=== PATIENT | female | born 1965 | race Caucasian/White ===

== ENCOUNTER 2016-10-31 14:51 | Outpatient (CLI) | payer OTHER ==
[~2016-10-31 14:51] MED LIST: ADIPEX-P37.5 MG PO; BUSPIRONE HCL5 MG PO; DOCUSATE SODIU100 MG PO; HCTZ/TRIAMTEREN1 TA1 PO; LAMOTRIGINE25 MG PO; LOPRESSOR50 MG PO; NEURONTIN300 MG PO; NORCO1 TA1 PO; ROBAXIN500 M1 PO; TRAZODONE HCL50 MG PO
== END 2016-10-31 23:00 ==
LOC: LAB SRH 14:51
DX: R07.9 Chest pain, unspecified (principal)
CPT/HCPCS: 90047; 90074; 90616; 93140; 95059

== ENCOUNTER 2017-02-16 19:09 | Emergency (ER) | payer OTHER ==
--- NOTE | 2017-02-16 20:43 | DIAGNOSTIC IMAGING REPORT ---
PROCEDURE: XR CHEST 1 VIEW INDICATION: CHEST PAIN TECHNIQUE: Portable AP view 07:28 p.m.. COMPARISON: Chest x-ray 09/28/2016. FINDINGS: Lungs are clear. Heart and mediastinum are normal. Thorax is normal. Marked gaseous distention of the stomach. IMPRESSION: 1. Marked gaseous distention of the stomach 2. Otherwise negative chest
--- NOTE | 2017-02-16 23:51 | ED ORDER SUMMARY ---
..... Patient: BETTE ELIZALDE OrderSheet [facility] VisitID: [id number] [address] [place] [address] 51y, F Registration Date/Time: 02/16/2017 ORDER SHEET Weight: 83.4 kg (stated) Allergies: Adhesive GENERAL ORDERS: Brokerage Branch Manager (Continuous) (19:35 02/16/2017 HBivens A.R.N.P.) (19:38 CBradburn R.N.) Chest 1V Urgent (19:35 02/16/2017 HBivens A.R.N.P.) (Ack 19:37 CHagerty ER Property Staff Accountant) (19:48 MCampbell) CBC w Diff Urgent (19:35 02/16/2017 HBivens A.R.N.P.) (Ack 19:37 CHagerty ER Property Staff Accountant) (19:57 CBradburn R.N.) CMP Urgent (19:35 02/16/2017 HBivens A.R.N.P.) (Ack 19:37 CHagerty ER Property Staff Accountant) (19:57 CBradburn R.N.) CPK Urgent (19:35 02/16/2017 HBivens A.R.N.P.) (Ack 19:37 CHagerty ER Property Staff Accountant) (19:57 CBradburn R.N.) Troponin-I Urgent (19:35 02/16/2017 HBivens A.R.N.P.) (Ack 19:37 CHagerty ER Property Staff Accountant) (19:57 CBradburn R.N.) Oxygen (2 L/min) (NC) (19:35 02/16/2017 HBivens A.R.N.P.) (19:50 CBradburn R.N.) EKG - ER Stat (19:35 02/16/2017 HBivens A.R.N.P.) (19:36 CHagerty ER Property Staff Accountant) Troponin-I Urgent (20:52 02/16/2017 HBivens A.R.N.P.) (Ack 20:57 CHagerty ER Property Staff Accountant) (22:16 CBradburn R.N.) CPK Urgent (20:52 02/16/2017 HBivens A.R.N.P.) (Ack 20:57 CHagerty ER Property Staff Accountant) (22:16 CBradburn R.N.) EKG - ER Stat (22:48 02/16/2017 HBivens A.R.N.P.) (Ack 22:50 CHagerty ER Property Staff Accountant) (23:08 CBradburn R.N.) MEDICATION ORDERS: NitroGLYCERIN SL 0.4 mg (x3 PRN Chest Pain) (19:35 02/16/2017 HBivens A.R.N.P.) (Ack 19:39 CBradburn R.N.) (19:50 CBradburn R.N.) Aspirin PO 325 mg (Do not crush or chew, NOW) (19:35 02/16/2017 HBivens A.R.N.P.) (Ack 19:49 CBradburn R.N.) (19:49 CBradburn R.N.) IV FLUIDS: IV Saline Lock (19:35 02/16/2017 HBivens A.R.N.P.) (19:39 CBradburn R.N.) Ativan IV 2 mg (HIGH ALERT MEDICATION, NOW) (20:07 02/16/2017 HBivens A.R.N.P.) (Ack 20:09 CBradburn R.N.) (20:21 CBradburn R.N.) IV NS : initial bolus 1000 mL (1000 mL/hr), then none - (NOW) (20:51 02/16/2017 HBivens A.R.N.P.) (Ack 20:57 CBradburn R.N.) (21:28 CBradburn R.N.) Morphine IV 2 mg (NOW) (23:00 02/16/2017 Mariam ZELAYA) (Ack 23:43 CBradburn R.N.) (23:43 CBradburn R.N.) NitroGLYCERIN Drip IV : 5 mcg/min (TITRATE); Urgent (23:00 02/16/2017 Mariam ZELAYA) (Ack 23:43 CBradburn R.N.) (23:43 CBradburn R.N.) Heparin IV : initial bolus 1600, then 1000 per hour for X1 (NOW); Routine (23:01 02/16/2017 Mariam ZELAYA) (Ack 23:43 Micah Engle) (23:43 Micah Engle) ORDER SHEET NOTES: [Electronically signed by Ondina Edwards R.N. (:02/17/2017)] [Electronically signed by Ministerio Saravia MD (06:02/17/2017)] [Electronically locked/signed by Ondina Edwards R.N. (02/17/2017)]
--- NOTE | 2017-02-16 23:51 | ED ORDER SUMMARY ---
..... Patient: BETTE ELIZALDE OrderSheet [facility] VisitID: [id number] [address] [place] [address] 51y, F Registration Date/Time: 02/16/2017 ORDER SHEET Weight: 83.4 kg (stated) Allergies: Adhesive GENERAL ORDERS: Industrial Green Systems Designer (Continuous) (19:35 02/16/2017 HBivens A.R.N.P.) (19:38 CBradburn R.N.) Chest 1V Urgent (19:35 02/16/2017 HBivens A.R.N.P.) (Ack 19:37 CHagerty ER Hand Former Helper) (19:48 MCampbell) CBC w Diff Urgent (19:35 02/16/2017 HBivens A.R.N.P.) (Ack 19:37 CHagerty ER Hand Former Helper) (19:57 CBradburn R.N.) CMP Urgent (19:35 02/16/2017 HBivens A.R.N.P.) (Ack 19:37 CHagerty ER Hand Former Helper) (19:57 CBradburn R.N.) CPK Urgent (19:35 02/16/2017 HBivens A.R.N.P.) (Ack 19:37 CHagerty ER Hand Former Helper) (19:57 CBradburn R.N.) Troponin-I Urgent (19:35 02/16/2017 HBivens A.R.N.P.) (Ack 19:37 CHagerty ER Hand Former Helper) (19:57 CBradburn R.N.) Oxygen (2 L/min) (NC) (19:35 02/16/2017 HBivens A.R.N.P.) (19:50 CBradburn R.N.) EKG - ER Stat (19:35 02/16/2017 HBivens A.R.N.P.) (19:36 CHagerty ER Hand Former Helper) Troponin-I Urgent (20:52 02/16/2017 HBivens A.R.N.P.) (Ack 20:57 CHagerty ER Hand Former Helper) (22:16 CBradburn R.N.) CPK Urgent (20:52 02/16/2017 HBivens A.R.N.P.) (Ack 20:57 CHagerty ER Hand Former Helper) (22:16 CBradburn R.N.) EKG - ER Stat (22:48 02/16/2017 HBivens A.R.N.P.) (Ack 22:50 CHagerty ER Hand Former Helper) (23:08 CBradburn R.N.) MEDICATION ORDERS: NitroGLYCERIN SL 0.4 mg (x3 PRN Chest Pain) (19:35 02/16/2017 HBivens A.R.N.P.) (Ack 19:39 CBradburn R.N.) (19:50 CBradburn R.N.) Aspirin PO 325 mg (Do not crush or chew, NOW) (19:35 02/16/2017 HBivens A.R.N.P.) (Ack 19:49 CBradburn R.N.) (19:49 CBradburn R.N.) IV FLUIDS: IV Saline Lock (19:35 02/16/2017 HBivens A.R.N.P.) (19:39 CBradburn R.N.) Ativan IV 2 mg (HIGH ALERT MEDICATION, NOW) (20:07 02/16/2017 HBivens A.R.N.P.) (Ack 20:09 CBradburn R.N.) (20:21 CBradburn R.N.) IV NS : initial bolus 1000 mL (1000 mL/hr), then none - (NOW) (20:51 02/16/2017 HBivens A.R.N.P.) (Ack 20:57 CBradburn R.N.) (21:28 CBradburn R.N.) Morphine IV 2 mg (NOW) (23:00 02/16/2017 Mariam ZELAYA) (Ack 23:43 CBradburn R.N.) (23:43 CBradburn R.N.) NitroGLYCERIN Drip IV : 5 mcg/min (TITRATE); Urgent (23:00 02/16/2017 Mariam ZELAYA) (Ack 23:43 CBradburn R.N.) (23:43 CBradburn R.N.) Heparin IV : initial bolus 1600, then 1000 per hour for X1 (NOW); Routine (23:01 02/16/2017 Mariam ZELAYA) (Ack 23:43 Micah Engle) (23:43 Micah Engle) ORDER SHEET NOTES: [Electronically signed by Ondina Edwards R.N. (:02/17/2017)] [Electronically signed by Ministerio Saravia MD (06:02/17/2017)] [Electronically locked/signed by Ondina Edwards R.N. (02/17/2017)]
--- NOTE | 2017-02-16 23:51 | ED CLINICAL REPORT ---
Clinical Report - Physicians/Mid Levels [facility] [address] [place] [address] 02/16/2017 19:09 Patient: BETTE ELIZALDE Time Seen: 1924; initial patient contact, initial documentation, patient care assumed. Arrived- By ambulance. Historian- patient. CPT: ER phys charges level 5 plus (#[id number]). EKG interpretation (#[id number]). HISTORY OF PRESENT ILLNESS Chief Complaint: CHEST PAIN and DISCOMFORT. It is described as pressure and "pain" and it is described as located in the left chest area and radiating to the left arm. At its maximum, severity described as severe. When seen in the E.D., severity described as severe. Modifying factors- relieved by nitroglycerin (four, from patients own supply). (took x4 ntg today, no relief). Not worsened by anything. Not relieved by anything. This started today and is still present. Onset during sleep. No nausea, vomiting or diaphoresis. (also says she has daily anxiety attacks). She has had difficulty breathing on exertion and at rest. Similar symptoms previously: Chronically. ( states she has cp every day). Recent medical care: Not recently seen/assessed. REVIEW OF SYSTEMS No fever, chills, cough, pedal edema or calf pain. No fainting episodes, sore throat or throat, abdominal pain or black stools. No difficulty with urination, skin rash, enlarged lymph nodes, diabetic symptoms or easy bruising. All systems otherwise negative, except as recorded above. PAST HISTORY See nurses notes. PROBLEMS: Diarrhea. Abdominal Pain. Arthritis. Diverticulitis. IBS. Gastritis. Fibromyalgia. Hypertension. Depression. -. NSTEMI. 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 Hysterectomy. Shoulder Surgery. --19:24 Ondina Edwards R.N. Anxiety problems. SOCIAL HISTORY Light tobacco smoker. Occasional alcohol use. No drug use. No recent travel. Is a local resident. FAMILY HISTORY History of heart disease in first-degree relative (mother) and grandparent. ADDITIONAL NOTES The nursing notes have been reviewed with agreement regarding the chief complaint, HPI, ROS, PMH and patient medications and allergies. PHYSICAL EXAM Vital Signs: 02/16/2017 19:15 BP: 163/91. HR: 95. RR: 24. O2 saturation: 100%. Temp: 97.8 F. Pain level now: 07/11. Have been reviewed as abnormal and appear to be correct. Hypertensive. Heart rate normal. Respiratory rate normal. Temperature normal. Oxygen saturation normal. Appearance: Alert. Oriented X3. No acute distress. Anxious. (tearful and crying). Eyes: Pupils equal, round and reactive to light. Eyes normal inspection. Neck: Normal inspection. Neck supple. CVS: Normal heart rate and rhythm. Heart sounds normal. Pulses normal. Respiratory: No respiratory distress. Breath sounds normal. Chest nontender. Abdomen: Soft and nontender. Back: Normal external inspection. Skin: Skin warm and dry. Normal skin color. No rash. Normal skin turgor. Extremities: Extremities exhibit normal ROM. No lower extremity edema. Neuro: Oriented X 3. No motor deficit. No sensory deficit. LABS, X-RAYS, AND EKG EKG: EKG time: (1921). No acute process. No acute ischemia. Normal EKG. Rate: 95. Right atrial enlargement. Normal EKG. EKG unchanged when compared with prior EKG. The study has been interpreted contemporaneously by me (and Dr León). The EKG appears to be a good tracing. Interpretation time: 1924. Chest X-ray: Normal Chest X-Ray. (IMPRESSION: 1. Marked gaseous distention of the stomach 2. Otherwise negative chest Electronically Final signed by:Cristofer George MD 02/16/2017 8:42:47 PM). The X-rays were interpreted by the radiologist and contemporaneously by me. Interpretation time: 20:55. Laboratory Tests: CBC w Diff: (DAVID: 02/16/2017 19:56) ( MsgRcvd 02/16/2017 20:19) Final results Test Result Flag Units (Reference) WHITE BLOOD COUNT 11.3 K/uL (4.5-11.5) RED BLOOD COUNT 5.07 M/uL (4.00-5.20) HEMOGLOBIN 15.6 gm/dL (12.0-16.0) HEMATOCRIT 46.1 H % (36.0-46.0) MEAN CELL VOLUME 91 fL (80-100) MEAN CORPUSCULAR HGB 31 pg (26-34) MEAN CORPUSCULAR HGB CONC 34 g/dL (31-37) RED CELL DISTRIBUTION WIDTH 13.2 % (11.6-14.8) PLATELET COUNT 279 K/uL (150-400) NEUTROPHIL % 90.3 H % (50-75) LYMPH % 4.8 L % (25-40) MONO % 3.9 % (3-14) EOSINOPHIL % 0.9 % (0-4) BASOPHIL % 0.1 % (0-2) CPK: (DAVID: 02/16/2017 22:10) ( [facility] 02/16/2017 22:47) Final results Test Result Flag Units (Reference) CPK 70 U/L (24-260) TROPONIN I 2.06 H ng/mL (0.00-1.5) CRITICAL RESULTS CALLEDCalled to MADINA BLAND RN 02/16/17 [id number] 2 patient identifiers used? YWas the result read back? YTROPONIN REFERENCE RANGE:<0.1 NEGATIVE0.1-1.5 INDETERMINANT>1.5 POSITIVE CMP: (DAVID: 02/16/2017 19:56) ( [facility] 02/16/2017 20:41) Final results Test Result Flag Units (Reference) GLUCOSE 150 H mg/dL (70-110) BUN 18 mg/dL (7-18) CREATININE 0.6 mg/dL (0.6-1.3) Estimated GFR >60 mL/min Estimated GFR- >60 mL/min Note: Persistent reduction over 3 months in eGFR<60 mL/min/1.73 m2 defines CKD. Patients with eGFR values>=60 mL/min/1.73 m2 may also have CKD if evidence ofpersistent proteinuria. Additional information may be foundat www.kidney.org. SODIUM 138 mmol/L (136-145) POTASSIUM 3.4 L mmol/L (3.5-5.1) CHLORIDE 102 mmol/L (98-107) CARBON DIOXIDE 19 L mmol/L (21-32) CALCIUM 9.0 mg/dL (8.5-10.1) TOTAL PROTEIN 7.6 g/dL (6.4-8.2) ALBUMIN 3.9 g/dL (3.3-5.0) BILIRUBIN, TOTAL 1.3 H mg/dL (0.0-1.0) ALKALINE PHOSPHATASE 59 U/L (46-116) AST (SGOT) 14 L U/L (15-37) ALT (SGPT) 30 U/L (12-78) CPK 29 U/L (24-260) TROPONIN I <0.05 ng/mL (0.00-1.5) TROPONIN REFERENCE RANGE:<0.1 NEGATIVE0.1-1.5 INDETERMINANT>1.5 POSITIVE . PROGRESS AND PROCEDURES Course of Care: 19:45 02/16/17. pt has murray for frequent narcs, consistently getting hydrocodone 7.5mg #60 monthly, #6 er visits, see report for full details 20:06 02/16/17. nurse reporting pt's pain down from 10 to 5 after x3 ntg, pt still anxious 2200. pt updated with current results, and lab at bedside drawing second set of enzymes 23:02 02/16/17. Assumed care from off going mid-level . Pt with 3 hour troponin that has turned positive. Pain still 5/10 Morphine 2mg IV Nitroglycerin drip Heparin 1600 mg Iv bolus then 1000 units per hour. Call to [facility] : no beds. Pt with NSTEMI and troponin of 2.1. 02/16/2017 20:15 BP: 119/81. HR: 99. RR: 20. O2 saturation: 98%. Pain level now: 5/10. Vital Signs: have been reviewed as normal and appear to be correct. Discussed case with on-call health care provider, ([place]ac[facility]: [facility] Reviewed test results. Agreed upon treatment plan and decision to admit. Health care provider will see patient in hospital. Patient/family counseled. Differential Diagnosis: I considered muscle strain, costochondritis, myositis, pleurisy, myocardial infarction, intermediate coronary syndrome, unstable angina, angina, aortic dissection, mitral valve prolapse, pericarditis, palpitations, lung cancer, gastroesophageal reflux disease, esophagitis and esophageal spasm as a possible cause of chest pain in this patient. (anxiety, substance abuse). Above considerations are based on history, physical exam, reassessment, laboratory data, X-Ray data and EKG. Differential diagnosis was discussed with patient. Disposition: Transferred. [facility]. Not discharged. CLINICAL IMPRESSION Precordial chest pain characterized as "discomfort" and "pressure" .12 lead EKG performed. NSTEMI. (Electronically signed by Ministerio Saravia MD 02/17/2017 6:01)
--- NOTE | 2017-02-16 23:51 | ED NURSING NOTES ---
Clinical Report - Nurses [address] [address] [place] [address] 02/16/2017 19:09 Patient: BETTE ELIZALDE TRIAGE Triage time 19:10. Acuity: LEVEL 2. Chief Complaint: CHEST PAIN and LEFT ARM PAIN and SHORTNESS OF BREATH. --19:28 Ondina Edwards R.N. 19:15 02/16/17. BP: 163/91 taken on the left arm, while lying. HR: 95 (regular and normal rate). RR: 24 (regular, unlabored and rapid). O2 saturation: 100% on room air. Temp: 97.8 F. Pain level now: 07/11. --19:28 Ondina Edwards R.N. Weight: 83.4 kg stated. Height/Length: 68 inches Per Patient. BMI: 28. --19:25 Ondina Edwards R.N. Medications LamoTRIgine Oral (Tablet Dispersible 25 mg) 1/2 tablet, q day. Methocarbamol Oral 750 mg, at bedtime. Metoprolol Tartrate Oral 50 mg, q day. TraZODone HCl Oral 100 mg 2 tabs, at bedtime. Vicodin Oral 7.5 mg, as needed. --19:20 Ondina Edwards R.N. AmLODIPine Besylate Oral (Tablet 10 mg) 1 tablet, daily. --19:20 Ondina Edwards R.N. Aspirin Oral (Tablet Chewable 81 mg) 1 tablet. --19:20 nOdina Edwards R.N. BuPROPion HCl Oral 300 mg, daily. --19:21 Ondina Edwards R.N. Nitroglycerin Sublingual (Tablet Sublingual 0.4 mg) 1 tablet, PRN. --19:22 Ondina Edwards R.N. Rosuvastatin Calcium Oral (Tablet 20 mg) 1 tablet, at bedtime. --19:22 Ondina Edwards R.N. Ticagrelor Oral (Tablet 90 mg) 1 tablet, BID. --19:23 Ondina Edwards R.N. Allergies Adhesive. --:23 Ondina Edwards R.N. History Arrived by EMS. Historian: patient. Unaccompanied. Primary physician (Joesph). ( has CP everyday, however woke pt up this morning at 0200 pt took 4 SL nitro today last one at 1300 without relief, pt hyperventalating). She has had moderate difficulty breathing (since 6 AM). The patient has also had dyspnea on exertion. PAST MEDICAL HX: The patient is post-menopausal. SOCIAL HX: Smoker- current status unknown. Occasional alcohol use. No drug use. ABUSE ASSESSMENT: No report of abuse. SELF HARM ASSESSMENT: A self harm assessment was performed. The patient answered "no" to the question "Have you recently felt down, depressed, or hopeless?", "Have you noticed less interest or pleasure in doing things?", "Do you have thoughts of harming or killing yourself?", "Are you here because you tried to hurt yourself?", "Have you ever tried to hurt yourself before today?", "Have you recently had thoughts about harming or killing others?" and "Do you have any dangerous items in your possession?". FALL RISK ASSESSMENT: Fall risk assessment completed. No fall risk identified. NUTRITIONAL RISK ASSESSMENT: The nutritional risk assessment revealed no deficiencies. FUNCTIONAL ASSESSMENT: Functional assessment: no impairments noted. LEARNING NEEDS ASSESSMENT: The learning needs assessment revealed no barriers. SKIN INTEGRITY ASSESSMENT: Skin integrity risk assessment completed. No skin integrity risk identified. -- Ondina Edwards R.N. PROBLEMS: Diarrhea. Abdominal Pain. Arthritis. Diverticulitis. IBS. Gastritis. Fibromyalgia. Hypertension. Depression. --19:24 Ondina Edwards R.N. NSTEMI. --19:24 Ondina Edwards R.N. ADDITIONAL SURGERIES: Breast reduction. Hysterectomy. Shoulder Surgery. --19:24 Ondina Edwards R.N. Interventions ID band on patient. --19:28 Ondina Edwards R.N. PHYSICAL ASSESSMENT To room via stretcher. GENERAL / NEURO / PSYCH: Alert. Oriented X 4. Appears anxious. HEENT: Mucous membranes are pink. RESPIRATORY: Mild respiratory distress. Chest nontender. Chest pain reproducible with palpation of the sternum, with movement of the left arm and with deep breathing. Chest wall tenderness. CVS: Normal sinus rhythm noted. Heart sounds within normal limits. Pulses within normal limits. Capillary refill less than 2 seconds. GI / : Abdomen soft. EXTREMITIES: No lower extremity edema. SKIN: Skin is warm and dry. Normal skin turgor. Skin is non-tender. --19:30 Ondina Edwards R.N. NURSING PROGRESS NOTES Two patient identifiers checked. Call light placed in reach. Side rails up x 2. Bed placed in lowest position. Brakes of bed on. --19:30 Ondina Edwards R.N. Patient ready for evaluation- chart flagged. --19:30 Ondina Edwards R.N. 19:30 02/16/2017 Site #1 started prior to arrival by EMS via IV in the right antecubital space with an 20g angiocath. Saline lock flushed with 10 mL saline. --19:39 Ondina Edwards R.N. EKG time: (1921). EKG was performed by a zander and shown to the ED physician and YARD MOTOR OPERATOR. --19:39 Liza Vásquez 19:43 02/16/2017 Aspirin PO Tablets 325 mg given. Allergies verified and confirmed 5 rights. --19:49 Ondina Edwards R.N. 19:44 02/16/2017 Nitroglycerin SL Tablets 0.4 mg given. Allergies verified and confirmed 5 rights. --19:50 Ondina Edwards R.N. 19:51 02/16/2017 Nitroglycerin SL Tablets 0.4 mg given. Allergies verified and confirmed 5 rights. --19:54 Ondina Edwards R.N. 19:50 02/16/17. BP: 135/93 taken on the left arm, while sitting. HR: 111 (regular and normal rate). RR: 20 (regular and unlabored). O2 saturation: 97%. O2 started via nasal cannula at 2 liters/minute. Temp: deferred. Pain level now: 05/11. --19:56 Ondina Edwards R.N. Reassessment after medication administered (Nitro 0.4 mg SL). Overall patient status is improved. ( Reports CP improving however states feels like 400 lbs on chest.). CVS: The patient reports left-sided and central chest pain is still present but improving and currently moderate in severity, described as dull and radiating to the left arm and associated with shortness of breath. --19:56 Ondina Edwards R.N. front desk monitor, pulse oximeter and NIBP monitor placed on patient; front desk monitor- Lead II; monitor alarms on. --19:56 Ondina Edwards R.N. Reassurance given to the patient. --19:56 Ondina Edwards R.N. 19:51 02/16/2017 Nitroglycerin SL Response: pain is improving. Symptoms have improved the patient feels better. (pain 8/10). --19:58 Ondina Edwards R.N. 19:56 02/16/2017 Nitroglycerin SL Tablets 0.4 mg given. Allergies verified and confirmed 5 rights. --20:00 Ondina Edwards R.N. 19:56 02/16/2017 Nitroglycerin SL Response: pain is improving. Symptoms have improved the patient feels better. (pain 6/10). --19:59 Ondina Edwards R.N. Reassessment after medication administered (Nitro 0.4mg SL). Overall patient status is improved- she states feels better. The patient reports left-sided and central chest pain is still present but improving and currently described as pressure-like and associated with shortness of breath. ( after 3rd SL nitro pt reports 5/10 pressure down from a 10/10, VSS, will continue to monitor). Call light placed in reach. --20:04 Ondina Edwards R.N. 20:21 02/16/2017 Ativan (LORazepam) IVP 2 mg given over 2 minute(s) via site #1. Allergies verified, confirmed 5 rights and sedative warning given to the patient. IV patency established. IV site checked: no pain, redness, or swelling. IV flushed thoroughly pre- and post-medication administration. IVP given by RN. --20:21 Ondina Edwards R.N. 20:15 02/16/17. BP: 119/81 taken on the left arm, while sitting. HR: 99 (regular and normal rate). RR: 20 (regular and unlabored). O2 saturation: 98% on nasal cannula at 2 liters/minute. Temp: deferred. Pain level now: 02/08. --20:25 Ondina Edwards R.N. The patient is calm and resting quietly. Overall patient status is improved- she states feels better. GENERAL / NEURO / PSYCH: The patient reports anxiety is still present but improving. SKIN: Skin is warm and dry. Skin color within normal limits. --20:25 Ondina Edwards R.N. Blood samples drawn by lab. (1956). --20:56 Ondina Edwards R.N. 21:28 02/16/2017 Started bag #1 1000 mL IV Fluids IV NS (Saline); bolus of 1000 mL wide open then over 1 hour(s) via site #1. Allergies verified and confirmed 5 rights. IV patency established. IV site checked: no pain, redness, or swelling. IV flushed thoroughly pre- and post-medication administration. --21:28 Ondina Edwards R.N. 21:15 02/16/17. BP: 161/89 taken on the left arm, while lying. HR: 105 (regular and tachycardic). RR: 18 (regular and unlabored). O2 saturation: 99% on nasal cannula at 2 liters/minute. Temp: deferred. Pain level now: 01/09. --21:29 Ondina Edwards R.N. The patient is calm and resting quietly. Overall patient status is improved- she states feels better. RESPIRATORY: No respiratory distress. Breath sounds normal. SKIN: Skin is warm and dry. Skin color within normal limits. --21:29 Ondina Edwards R.N. Critical value relayed to ED by Chin. Critical value received by lisa Nayak RN 2250 PM. Troponin: 2.06. Critical value read back. Verified lab result and patient ID. ED physician notifed of critical value. Orders were not received. No action is required. --22:54 Lisa Nayak R.N. EKG time: (2301). EKG was performed by a tech and shown to the YARD MOTOR OPERATOR. ( repeat). --23:09 Liza Vásquez 23:25 02/16/17. BP: 141/83 taken on the right arm, while lying. HR: 96. RR: 18. O2 saturation: 98% on nasal cannula at 2 liters/minute. Pain level now: 01/09. --23:26 Ondina Edwards R.N. The patient is calm and resting quietly. Overall patient status is improved. --23:26 Ondina Edwards R.N. 23:25 02/16/2017 Site #2 started via IV in the left wrist with an 20g angiocath, with aseptic technique and good blood return; one attempt. Saline lock flushed with 10 mL saline. --23:48 Ondina Edwards R.N. <<STRICKEN ENTRY-- 23:30 02/16/2017 Morphine IVP 2 mg given over 2 minute(s) via site #1. --23:43 Ondina Edwards R.N. --END STRIKE>> Change to Details. --23:43 Ondina Edwards R.N. 23:30 02/16/2017 Morphine IVP 2 mg given over 2 minute(s) via site #1. Allergies verified, confirmed 5 rights and sedative warning given to the patient. IV patency established. IV site checked: no pain, redness, or swelling. IV flushed thoroughly pre- and post-medication administration. IVP given by RN. --23:43 Ondina Edwards R.N. 23:32 02/16/2017 Started 5 mcg of Nitroglycerin Drip IV in bag #1 250 mL; at 5 mcg/min over 166 hour(s) via site #2 via IV pump. Allergies verified and confirmed 5 rights. IV patency established. IV site checked: no pain, redness, or swelling. IV flushed thoroughly pre- and post-medication administration. --23:50 Ondina Edwards R.N. 23:35 02/16/2017 Heparin IVP 1000 unit given over 24 hour(s) via site #1. Allergies verified and confirmed 5 rights. IV patency established. IV site checked: no pain, redness, or swelling. IV flushed thoroughly pre- and post-medication administration. IVP given by RN (1600 mg bolus / 0.32ml given). --23:52 Ondina Edwards R.N. 00:30 02/17/17. BP: 135/71 taken on the right arm, while lying. HR: 86 (regular and normal rate). RR: 18 (regular and unlabored). O2 saturation: 100% on nasal cannula at 2 liters/minute. Temp: 97.8 F (oral). Pain level now: 01/09. --00:32 Ondina Edwards R.N. Overall patient status is improved- she states feels better. RESPIRATORY: No respiratory distress. Breath sounds normal. SKIN: Skin is warm and dry. Skin color within normal limits. --00:32 Ondina Edwards R.N. Two patient identifiers checked. Call light placed in reach. Side rails up x 2. Bed placed in lowest position. Brakes of bed on. --00:32 Ondina Edwards R.N. 23:32 02/16/2017 Nitroglycerin Drip IV Co-signature: dosage, concentration and rate verified. --01:10 Oniel Tamayo 23:35 02/16/2017 Heparin IVP Co-signature: dosage, concentration and rate verified. --01:11 Oniel Tamayo DISPOSITION / DISCHARGE Transferred. Summary of care provided to EMS via paper ([place]). Transported via ambulance by nurse and transport team with monitor, IV, O2 and emergency medications. Report was given to a nurse via a phone call. Report included patient's care, treatment, medications, reviewed medication reconcilliation, and condition (including any recent changes or anticipated changes). All questions were answered. Report was acknowledged and care was transferred. (Shawna MONDRAGON). Patient's personal items; items were transported with the patient. --00:41 Ondina Edwards R.N. 01:02/17/2017 Site #[address] upon transfer; patent, no pain and no signs of infection or infiltration. Good blood return present. --01:09 Ondina Edwards R.N. 01:02/17/2017 Site #[address] upon transfer; patent, no pain and no signs of infection or infiltration. Good blood return present. --01:09 Ondina Edwards R.N. 01:02/17/2017 IV Saline Lock Drip IV Continued: upon transfer at the rate of 0 mL/hr. 0 mL remaining bag #1. IV patency established. IV site checked: no pain, redness, or swelling. IV flushed thoroughly. --01:07 Ondina Edwards R.N. 01:02/17/2017 IV Fluids IV NS Discontinued: bag #1 completed upon transfer. Total amount infused: 1000 mL. IV patency established. IV site checked: no pain, redness, or swelling. IV flushed thoroughly. --01:07 Ondina Edwards R.N. 01:02/17/2017 Nitroglycerin Drip IV Continued: upon transfer at the rate of 5 mcg/min bag #1. IV patency established. IV site checked: no pain, redness, or swelling. IV flushed thoroughly. --01:08 Ondina Edwards R.N. Departure time: 0110. --01:12 Ondina Edwards R.N. 01:02/17/17. BP: 133/81 taken on the right arm, while lying. HR: 86 (regular and normal rate). RR: 18 (regular and unlabored). O2 saturation: 98% on nasal cannula at 2 liters/minute. Temp: deferred. Pain level now: 01/09. --01:12 Ondina Edwards R.N. Locked/Released at 02/17/2017 1:13 by Ondina Edwards R.N.
--- NOTE | 2017-02-17 06:02 | ED MAR SUMMARY ---
..... Medication Administration Record [facility] [address] [place] [address] Patient: BETTE ELIZALDE Visit ID: [id number] 51y, F Weight: 83.4 kg Height/Length: 68 in BMI: 28 ALLERGIES: Adhesive Given 19:43 02/16/2017 Ondina Edwards R.N. Medication Administered: ASPIRIN [PO], Dose: 325 mg Tablets PO. Medication Ordered: Aspirin PO 325 mg (Do not crush or chew, NOW). Given 19:44 02/16/2017 Ondina Edwards R.N. Medication Administered: NITROGLYCERIN [SL], Dose: 0.4 mg Tablets SL. Medication Ordered: NitroGLYCERIN SL 0.4 mg (x3 PRN Chest Pain). Given 19:51 02/16/2017 Ondina Edwards R.N. Medication Administered: NITROGLYCERIN [SL], Dose: 0.4 mg Tablets SL. Medication Ordered: NitroGLYCERIN SL 0.4 mg (x3 PRN Chest Pain). Given 19:56 02/16/2017 Ondina Edwards R.N. Medication Administered: NITROGLYCERIN [SL], Dose: 0.4 mg Tablets SL. Medication Ordered: NitroGLYCERIN SL 0.4 mg (x3 PRN Chest Pain). Given 20:21 02/16/2017 Ondina Edwards R.N. Medication Administered: ATIVAN [IVP] (LORAZEPAM), Dose: 2 mg IVP over 2 minute(s), Site: #1 right AC. Medication Ordered: Ativan IV 2 mg (HIGH ALERT MEDICATION, NOW). Start 21:28 02/16/2017 Ondina Edwards R.N., Stop 01:06 02/17/2017 Ondina Edwards R.N. Medication Administered: IV NS (SALINE), Dose: IV Fluids over 1 hour(s), Bolus: 1000 mL wide open, Dispensed: 1000 mL bag, Site: #1 right AC. Medication Ordered: IV NS : initial bolus 1000 mL (1000 mL/hr), then none - (NOW). Given 23:30 02/16/2017 Ondina Edwards R.N. Medication Administered: MORPHINE [IVP], Dose: 2 mg IVP over 2 minute(s), Site: #1 right AC. Medication Ordered: Morphine IV 2 mg (NOW). Start 23:32 02/16/2017 Ondina Edwards R.N., Continued Upon Transfer 01:06 02/17/2017 Ondina Edwards R.N. Medication Administered: NITROGLYCERIN [IV DRIP], Dose: 5 mcg Drip IV over 166 hour(s), Rate: 5 mcg/min, Dispensed: 250 mL bag, Site: #2 left wrist. Medication Ordered: NitroGLYCERIN Drip IV : 5 mcg/min (TITRATE); Urgent. Given 23:35 02/16/2017 Ondina Edwards R.N. Medication Administered: HEPARIN [IVP], Dose: 1000 unit IVP over 24 hour(s), Site: #1 right AC. Medication Ordered: Heparin IV : initial bolus 1600, then 1000 per hour for X1 (NOW); Routine.
--- NOTE | 2017-02-17 06:02 | ED DISCHARGE INSTRUCTIONS ---
Patient: BETTE ELIZALDE General Instructions [facility] VisitID: [id number] [address] [place] [address] 51y, F Registration Date/Time: 02/16/2017 Precordial chest pain characterized as "discomfort" and "pressure" .12 lead EKG performed. NSTEMI. (Electronically signed by Ministerio Saravia MD 02/17/2017 6:01)
--- NOTE | 2017-02-17 06:02 | ED MAR SUMMARY ---
..... Medication Administration Record [facility] [address] [place] [address] Patient: BETTE ELIZALDE Visit ID: [id number] 51y, F Weight: 83.4 kg Height/Length: 68 in BMI: 28 ALLERGIES: Adhesive Given 19:43 02/16/2017 Ondina Edwards R.N. Medication Administered: ASPIRIN [PO], Dose: 325 mg Tablets PO. Medication Ordered: Aspirin PO 325 mg (Do not crush or chew, NOW). Given 19:44 02/16/2017 Ondina Edwards R.N. Medication Administered: NITROGLYCERIN [SL], Dose: 0.4 mg Tablets SL. Medication Ordered: NitroGLYCERIN SL 0.4 mg (x3 PRN Chest Pain). Given 19:51 02/16/2017 Ondina Edwards R.N. Medication Administered: NITROGLYCERIN [SL], Dose: 0.4 mg Tablets SL. Medication Ordered: NitroGLYCERIN SL 0.4 mg (x3 PRN Chest Pain). Given 19:56 02/16/2017 Ondina Edwards R.N. Medication Administered: NITROGLYCERIN [SL], Dose: 0.4 mg Tablets SL. Medication Ordered: NitroGLYCERIN SL 0.4 mg (x3 PRN Chest Pain). Given 20:21 02/16/2017 Ondina Edwards R.N. Medication Administered: ATIVAN [IVP] (LORAZEPAM), Dose: 2 mg IVP over 2 minute(s), Site: #1 right AC. Medication Ordered: Ativan IV 2 mg (HIGH ALERT MEDICATION, NOW). Start 21:28 02/16/2017 Ondina Edwards R.N., Stop 01:06 02/17/2017 Ondina Edwards R.N. Medication Administered: IV NS (SALINE), Dose: IV Fluids over 1 hour(s), Bolus: 1000 mL wide open, Dispensed: 1000 mL bag, Site: #1 right AC. Medication Ordered: IV NS : initial bolus 1000 mL (1000 mL/hr), then none - (NOW). Given 23:30 02/16/2017 Ondina Edwards R.N. Medication Administered: MORPHINE [IVP], Dose: 2 mg IVP over 2 minute(s), Site: #1 right AC. Medication Ordered: Morphine IV 2 mg (NOW). Start 23:32 02/16/2017 Ondina Edwards R.N., Continued Upon Transfer 01:06 02/17/2017 Ondina Edwards R.N. Medication Administered: NITROGLYCERIN [IV DRIP], Dose: 5 mcg Drip IV over 166 hour(s), Rate: 5 mcg/min, Dispensed: 250 mL bag, Site: #2 left wrist. Medication Ordered: NitroGLYCERIN Drip IV : 5 mcg/min (TITRATE); Urgent. Given 23:35 02/16/2017 Ondina Edwards R.N. Medication Administered: HEPARIN [IVP], Dose: 1000 unit IVP over 24 hour(s), Site: #1 right AC. Medication Ordered: Heparin IV : initial bolus 1600, then 1000 per hour for X1 (NOW); Routine.
--- NOTE | 2017-02-17 06:02 | ED MED RECONCILIATION SUMMARY ---
Patient: BETTE ELIZALDE Medication Reconciliation Report [facility] VisitID: [id number] [address] [place] [address] 51y, F Registration Date/Time: 02/16/2017 Weight: 83.4 kg Height/Length: 68 in. BMI: 28.0 ALLERGIES: Adhesive The patient's Home Medications are listed below: THE FOLLOWING MEDICATIONS NEED TO BE RECONCILED: AmLODIPine Besylate Oral (10 mg) 1 tablet, daily Aspirin Oral (81 mg) 1 tablet BuPROPion HCl Oral 300 mg, daily LamoTRIgine Oral (25 mg) 1/2 tablet, q day Methocarbamol Oral 750 mg, at bedtime Metoprolol Tartrate Oral 50 mg, q day Nitroglycerin Sublingual (0.4 mg) 1 tablet, PRN Rosuvastatin Calcium Oral (20 mg) 1 tablet, at bedtime Ticagrelor Oral (90 mg) 1 tablet, BID TraZODone HCl Oral 100 mg 2 tabs, at bedtime Vicodin Oral 7.5 mg The source(s) of the original Home Medication information: Not obtained. The following Medications were given to the patient in the Emergency Department: Aspirin [PO] PO 325 mg, administered: 02/16/2017 7:43:00 PM Nitroglycerin [SL] SL 0.4 mg, administered: 02/16/2017 7:44:00 PM Nitroglycerin [SL] SL 0.4 mg, administered: 02/16/2017 7:51:00 PM Nitroglycerin [SL] SL 0.4 mg, administered: 02/16/2017 7:56:00 PM Ativan [IVP] IVP 2 mg, administered: 02/16/2017 8:21:00 PM IV NS IV Fluids bolus 1000 mL wide open, administered: 02/16/2017 9:28:00 PM Morphine [IVP] IVP 2 mg, administered: 02/16/2017 11:30:00 PM Nitroglycerin [IV Drip] Drip IV bolus 0, then 5 mcg 5 mcg/min, administered: 02/16/2017 11:32:00 PM Heparin [IVP] IVP 1000 unit, administered: 02/16/2017 11:35:00 PM The following Medications were prescribed to the patient: None.
--- NOTE | 2017-02-17 06:02 | ED DISCHARGE INSTRUCTIONS ---
Patient: BETTE ELIZALDE General Instructions [facility] VisitID: [id number] [address] [place] [address] 51y, F Registration Date/Time: 02/16/2017 Precordial chest pain characterized as "discomfort" and "pressure" .12 lead EKG performed. NSTEMI. (Electronically signed by Ministerio Saravia MD 02/17/2017 6:01)
--- NOTE | 2017-02-17 06:02 | ED MED RECONCILIATION SUMMARY ---
Patient: BETTE ELIZALDE Medication Reconciliation Report [facility] VisitID: [id number] [address] [address] 51y, F Registration Date/Time: 02/16/2017 Weight: 83.4 kg Height/Length: 68 in. BMI: 28.0 ALLERGIES: Adhesive The patient's Home Medications are listed below: THE FOLLOWING MEDICATIONS NEED TO BE RECONCILED: AmLODIPine Besylate Oral (10 mg) 1 tablet, daily Aspirin Oral (81 mg) 1 tablet BuPROPion HCl Oral 300 mg, daily LamoTRIgine Oral (25 mg) 1/2 tablet, q day Methocarbamol Oral 750 mg, at bedtime Metoprolol Tartrate Oral 50 mg, q day Nitroglycerin Sublingual (0.4 mg) 1 tablet, PRN Rosuvastatin Calcium Oral (20 mg) 1 tablet, at bedtime Ticagrelor Oral (90 mg) 1 tablet, BID TraZODone HCl Oral 100 mg 2 tabs, at bedtime Vicodin Oral 7.5 mg The source(s) of the original Home Medication information: Not obtained. The following Medications were given to the patient in the Emergency Department: Aspirin [PO] PO 325 mg, administered: 02/16/2017 7:43:00 PM Nitroglycerin [SL] SL 0.4 mg, administered: 02/16/2017 7:44:00 PM Nitroglycerin [SL] SL 0.4 mg, administered: 02/16/2017 7:51:00 PM Nitroglycerin [SL] SL 0.4 mg, administered: 02/16/2017 7:56:00 PM Ativan [IVP] IVP 2 mg, administered: 02/16/2017 8:21:00 PM IV NS IV Fluids bolus 1000 mL wide open, administered: 02/16/2017 9:28:00 PM Morphine [IVP] IVP 2 mg, administered: 02/16/2017 11:30:00 PM Nitroglycerin [IV Drip] Drip IV bolus 0, then 5 mcg 5 mcg/min, administered: 02/16/2017 11:32:00 PM Heparin [IVP] IVP 1000 unit, administered: 02/16/2017 11:35:00 PM The following Medications were prescribed to the patient: None.
== END 2017-02-17 01:10 | disposition short-term general hospital (02) ==
LOC: ED SRH 19:09
DX: I21.4 Non-ST elevation (NSTEMI) myocardial infarction (principal); R07.2 Precordial pain; I10 Essential (primary) hypertension; Z72.0 Tobacco use; Z79.899 Other long term (current) drug therapy; Z91.048 Other nonmedicinal substance allergy status; Z79.82 Long term (current) use of aspirin
CPT/HCPCS: 90074; 90100; 90616; 92610; 95059